=== PATIENT | male | born 1995 | race Caucasian/White ===

== ENCOUNTER 2018-04-27 15:39 | Emergency (ER) | payer OTHER ==
[~2018-04-27] VITALS: Ht 177.8 cm; Wt 86.4 kg
[2018-04-27] MEDS ORDERED: PREDNISONE50 MG PO (16:49)
[2018-04-27] MEDS ORDERED: EPIPEN 2-P0.3 MG/0.3 IM (16:49)
[2018-04-27] MEDS ORDERED: BENADRYL 25MG C25 MG PO (17:18)
[2018-04-27 19:01] VITALS: BP 127/63
== END 2018-04-27 19:03 | disposition home or self-care (01) | DRG 918 ==
LOC: ED 15:39
DX: T63.421A Toxic effect of venom of ants, accidental (unintentional), initial encounter (principal); T78.2XXA Anaphylactic shock, unspecified, initial encounter; X58.XXXA Exposure to other specified factors, initial encounter